=== PATIENT | male | born 1995 | race Hispanic/Latino ===

== ENCOUNTER → 2017-05-01 | Outpatient (CLI) | payer OTHER | END | disposition home or self-care (01) | LOC: GMAM 17:05 | PROVIDERS: ATTEND Family Medicine | DX: R39.15 Urgency of urination (principal) ==

== ENCOUNTER 2018-10-03 17:14 | Emergency (ER) | payer OTHER ==
[2018-10-03 17:32] VITALS: O2SAT 100
--- NOTE | 2018-10-03 17:35 | ED.PDOC ---
History of Present Illness - General Chief Complaint: Neuro Symptoms/Deficits Stated Complaint: head injury Time Seen by Provider: 10/03/18 17:34 Source: patient Exam Limitations: no limitations - History of Present Illness Initial Comments: Nadja Bundy 22 y/o male stated that while he was walking toward his room at home he bump his head into the wooden door jamb and felt like passing out nad after incident was dazed could had a hard time recalling what happened .Denies N/V;blurry vision,syncopal episode.No chronic medical problems no history of previous head injuries. Timing/Duration: 1-3 hours Severity: moderate Episode Description: see hpi Improving Factors: nothing Worsening Factors: nothing Associated Symptoms: confusion Allergies/Adverse Reactions: Allergies NO KNOWN ALLERGY Allergy (Verified 10/03/18 17:22) Review of Systems - Review of Systems Neurological: States: see HPI All other Systems: Reviewed and Negative, No Change from Baseline Past Medical History (General) - Patient Medical History Hx Stroke: No Hx Asthma: No Hx Cardiac Disorders: No Hx Congestive Heart Failure: No Hx Pacemaker: No Hx Hypertension: No Hx Diabetes: No Surgical History: other - Social History Hx Tobacco Use: No Hx Physical Abuse: No Hx Emotional Abuse: No Hx Suspected Abuse: No Family Medical History - Family History Mother Family History: No Known Physical Exam - Physical Exam General Appearance: Alert, Comfortable, No apparent distress, Other - speech fluent Eye Exam: bilateral normal ENT Exam: normal ENT inspection, hearing grossly normal, TMs normal, pharynx normal Neck: non-tender, full range of motion, supple, normal inspection, trachea midline Respiratory: chest non-tender, lungs clear, normal breath sounds, no respiratory distress Cardiovascular/Chest: normal peripheral pulses, regular rate, rhythm, no murmur Peripheral Pulses: radial,right: 2+, radial,left: 2+ Gastrointestinal/Abdominal: non tender, soft, no organomegaly Back Exam: normal inspection, no CVA tenderness, no vertebral tenderness Mental Status: alert, 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 Exam: normal hearing, normal speech, PERRL Coordination/Gait: normal finger to nose, normal gait, negative Romberg's sign Motor/Sensory: no motor deficit, no sensory deficit, no pronator drift Skin Exam: normal color, warm/dry Progress - Progress Progress: 10/03/18 17:47 Vital Signs - 8 hr 10/03/18 17:24 Temperature 98.6 F Pulse Rate [ 74 right brachial] Respiratory 16 Rate Blood Pressure 141/85 [left brachial] O2 Sat by Pulse 100 Oximetry 10/03/18 18:[address]-Head findings result with patient - Results/Orders Results/Orders: Laboratory Results - last 24 hr 10/03/18 11:38 Urine Opiates Screen Negative Urine Barbiturates Negative Ur Phencyclidine Scrn Negative U Amphetamin/Meth Scrn Negative U Benzodiazepines Scrn Negative U Cocaine Metab Screen Negative U Cannabinoids Screen Negative - EKG/XRAY/CT CT Ordered: Yes - head-no acute abnormalities noted Departure - Departure Clinical Impression: Contusion of head Qualifiers: Encounter type: initial encounter Contusion of head detail: other part of head Qualified Code(s): S00.83XA - Contusion of other part of head, initial encounter Concussion Qualifiers: Encounter type: initial encounter Loss of consciousness presence/duration: without LOC Qualified Code(s): S06.0X0A - Concussion without loss of consciousness, initial encounter Time of Disposition: 18:44 Disposition: Discharge to Home or Self Care Condition: Good Departure Forms: ED Discharge - Pt. Copy, Patient Portal Self Enrollment Instructions: DI for Concussion Referrals: LISA DESOUZA [Nurse Practitioner] - 1-2 Weeks Additional Instructions: May take over the counter Tylenol 500 mg one tablet 3 x a day for pain/headache
--- NOTE | 2018-10-03 18:33 | CT ---
EXAM DESCRIPTION: Head: Computed Tomography. CLINICAL HISTORY: bump head COMPARISON: None. TECHNIQUE: Non-helical axial scans through the skull and brain, at 5 x 5 mm intervals, non-contrast. Sagittal and coronal 2.0 mm reconstructions. Axial 2.5 x 5 mm reconstructions. Total Exam DLP: 967.47 mGy-cm. This exam was performed according to our departmental dose-optimization program which includes automated exposure control, adjustment of the mA and/or kV according to patient size and/or use of iterative reconstruction technique; to reduce radiation dose to as low as reasonably achievable (ALARA). FINDINGS: No hemorrhage, no mass-effect, and no midline shift. Normal joe-white matter differentiation. No abnormal radiodense material in the brain parenchyma. Vascular calcifications not present; physiologic calcifications in the pineal gland and choroid plexus. No effacement or displacement of the ventricles, CSF spaces, or subdural spaces. No extra axial fluid collection or hemorrhage. No gross abnormalities of the bony calvarium. Included paranasal sinuses and mastoid air cells are well - aerated. IMPRESSION: 1. No hemorrhage, no mass effect, no midline shift. Normal noncontrast CT scan of the head. Electronically signed by: Landon Flores MD 10/03/2018 6:31 PM CDT
[2018-10-03 19:05] VITALS: BP 121/79; TEMP 97.7
== END 2018-10-03 19:01 | disposition home or self-care (01) ==
LOC: ER 17:14
DX: S06.0X0A Concussion without loss of consciousness, initial encounter (principal); S00.83XA Contusion of other part of head, initial encounter; W22.09XA Striking against other stationary object, initial encounter; Y93.01 Activity, walking, marching and hiking; Y92.008 Other place in unspecified non-institutional (private) residence as the place of occurrence of the external cause